=== PATIENT | female | born 1935 ===

== ENCOUNTER 2017-04-27 08:05 | Emergency (ER) | payer OTHER ==
[2017-04-27 08:06] VITALS: BMI 25.0
--- NOTE | 2017-04-27 08:55 | RAD ---
HISTORY: CHEST PAIN COMPARISON: No prior. TECHNIQUE: Chest PA and lateral FINDINGS: LUNGS: No active pulmonary disease. PLEURA: No significant pleural effusion identified. No pneumothorax apparent. CARDIOVASCULAR: Normal. OSSEOUS STRUCTURES: No significant abnormalities. VISUALIZED UPPER ABDOMEN: Normal. OTHER FINDINGS: None. IMPRESSION: No active disease.
[2017-04-27 09:07] LABS: BASO # 0.1 K/uL (0.0-0.2); BASO % 0.9 % (0.0-2.0); EOS # 0.2 K/uL (0.0-0.7); HEMOGLOBIN 13.3 g/dL (11.0-16.0); LYMPH # 1.5 K/uL (1.0-4.3); LYMPH % 17.1 % (20.0-40.0); MEAN CELL VOLUME 90.6 fL (81.0-99.0); MEAN CORPUSCULAR HEMOGLOBIN 30.6 pg (27.0-31.0); MEAN CORPUSCULAR HGB CONC 33.8 g/dL (33.0-37.0); MEAN PLATELET VOLUME 8.1 fL (7.2-11.7); MONO # 0.7 K/uL (0.0-0.8); MONO % 8.2 % (0.0-10.0); NEUT # 6.1 K/uL (1.8-7.0); NEUT % 71.8 % (50.0-75.0); RBC 4.33 Mil/uL (3.80-5.20); RED CELL DISTRIBUTION WIDTH 14.8 % (11.5-14.5); WHITE BLOOD COUNT 8.5 K/uL (4.8-10.8)
[2017-04-27 09:14] LABS: INR 1.2; PROTHROMBIN TIME 13.2 SECONDS (9.7-12.2)
[2017-04-27 09:19] LABS: ALB/GLOB RATIO 1.1 (1.0-2.1); ALBUMIN 3.8 g/dL (3.5-5.0); ALT/SGPT 25 U/L (9-52); AST/SGOT 20 U/L (14-36); BLOOD UREA NITROGEN 12 mg/dL (7-17); CALCIUM 9.3 mg/dl (8.6-10.4); GFR AFRICAN-AMERICAN > 60; GFR NON-AFRICAN AMERICAN > 60
--- NOTE | 2017-04-27 10:37 | C.PDOC ---
History Of Present Illness 82-year-old female complaining of upper back pain radiating to head and neck x4 days. Patient seen by her doctor two days ago, and prescribed a "pain patch" that she uses with minimal relief, resulting in her coming to ED for evaluation. Denies trauma, sick contacts, fever, chills, chest pain, shortness of breath, dizziness, or any other associated symptoms. No other complaints at this time. Time Seen by Provider: 04/27/17 08:13 Chief Complaint (Nursing): Cough, Cold, Congestion History Per: Patient History/Exam Limitations: no limitations Onset/Duration Of Symptoms: Days Past Medical History Reviewed: Historical Data, Nursing Documentation, Vital Signs Vital Signs: Last Vital Signs Temp 98.4 F 04/27/17 08:12 Pulse 87 04/27/17 08:12 Resp 16 04/27/17 08:12 BP 124/76 04/27/17 08:12 Pulse Ox 95 04/27/17 10:51 - Medical History PMH: Arthritis, Asthma, Atrial Fibrillation, Bronchitis, COPD, Depression, Diverticulitis, Fractures (Left wrist), Gastritis, HTN, Hypercholesterolemia, Osteoporosis, Pneumonia Surgical History: Cholecystectomy, Endoscopy, - [facility] Procedures ANESTH INJEC PERIPH NERV (03/14/13) CLOSED ENDOSCOPIC BIOPSY OF LARGE INTESTINE (10/17/14) ESOPHAGOGASTRODUODENOSCOPY [EGD] W/CLOSED BIOPSY (10/17/14) INTRODUCTION OF ANTI-INFLAM INTO RESP TRACT, VIA OPENING (08/27/16) NEBULIZER THERAPY (01/08/14) OP RED-INT FIX RAD/ULNA (03/14/13) Family History: States: Hypertension - Social History Hx Tobacco Use: No Hx Alcohol Use: No Hx Substance Use: No - Immunization History Hx Tetanus Toxoid Vaccination: No Hx Influenza Vaccination: Yes Hx Pneumococcal Vaccination: Yes Review Of Systems Except As Marked, All Systems Reviewed And Found Negative. Constitutional: Negative for: Fever, Weakness, Malaise ENT: Negative for: Ear Pain, Nose Congestion, Throat Pain Cardiovascular: Negative for: Chest Pain Respiratory: Negative for: Shortness of Breath Gastrointestinal: Negative for: Nausea, Vomiting Musculoskeletal: Positive for: Neck Pain, Back Pain Skin: Negative for: Rash Neurological: Positive for: Headache. Negative for: Weakness, Numbness, Incoordination, Dizziness Physical Exam - Physical Exam Appears: Non-toxic, No Acute Distress Skin: Normal Color, Warm, Dry, No Diaphoretic, No Rash Head: Normacephalic Eye(s): bilateral: Normal Inspection, PERRL Nose: Normal Oral Mucosa: Moist Lips: Normal Appearing Neck: Normal ROM, No Step Off Deformity Chest: Symmetrical Cardiovascular: Rhythm Regular, No Murmur Respiratory: Normal Breath Sounds, No Accessory Muscle Use Extremity: Normal ROM, Capillary Refill (<2 seconds), No Deformity, No Swelling Neurological/Psych: Oriented x3, Normal Speech, Other (No focal deficits) ED Course And Treatment - Laboratory Results Result Diagrams: 04/27/17 09:01 04/27/17 09:01 ECG: Interpreted By Me, Viewed By Me ECG Rhythm: Sinus Rhythm ECG Interpretation: No Acute Changes Rate From EC O2 Sat by Pulse Oximetry: 95 (RA) Pulse Ox Interpretation: Normal Progress Note: EKG, Bloodwork, Chest X-Ray ordered and reviewed. Patient treated with PO Flexeril and PO Tylenol. On re-evaluation, Patient is resting comfortably, and is in no acute distress. Patient was instructed to follow up with *physician/clinic* in 1-2 days for further evaluation. Disposition Counseled Patient/Family Regarding: Studies Performed, Diagnosis, Need For Followup, Rx Given - Disposition Referrals: Shabbir Moseley MD [Staff Provider] - Disposition: HOME/ ROUTINE Disposition Time: 10:50 Condition: STABLE Additional Instructions: FOLLOW UP WITH YOUR DOCTOR IN 1-2 DAYS USE MEDICATIONS NEEDED RETURN TO ER IF SYMPTOMS WORSEN Prescriptions: Acetaminophen [Tylenol 325mg tab] 650 mg PO Q6 PRN #30 tab PRN Reason: pain/fever Cyclobenzaprine [Flexeril] 10 mg PO BID PRN #15 tab PRN Reason: Muscle Spasm Instructions: Upper Back Pain Forms: [employer] (French) Print Language: TURKMEN - POA Present On Arrival: None - Clinical Impression Clinical Impression: Upper back pain - Scribe Statement The provider has reviewed the documentation as recorded by the Scribe (Molly Alvarado) All medical record entries made by the Scribe were at my direction and personally dictated by me. I have reviewed the chart and agree that the record accurately reflects my personal performance of the history, physical exam, medical decision making, and the department course for this patient. I have also personally directed, reviewed, and agree with the discharge instructions and disposition.
[2017-04-27 11:39] VITALS: BP 115/67; PULSE 77; RESP 18; TEMP 97.7; O2SAT 96
--- NOTE | 2017-04-28 12:25 | CARD ---
APPROVED REPORT EKG Measurement Heart [id number] TN [id number] <Conclusion> Unusual P axis and short TN, probable junctional rhythm with premature atrial complexes Abnormal ECG
== END 2017-04-27 11:30 | disposition home or self-care (01) ==
LOC: C.ER 08:05
DX: M54.6 Pain in thoracic spine (principal); I48.91 Unspecified atrial fibrillation; I10 Essential (primary) hypertension; E78.00 Pure hypercholesterolemia, unspecified; Z87.01 Personal history of pneumonia (recurrent); Z87.891 Personal history of nicotine dependence

== ENCOUNTER 2018-02-02 12:40 | Observation (INO) | payer OTHER ==
[2018-02-02 12:40] VITALS: BMI 22.4
[2018-02-02] MEDS ORDERED: Albuterol 0.083% Inhal Sol (2.5 mg/3 mL) UD IH STA ×3 (13:41→16:37)
--- NOTE | 2018-02-02 14:24 | RAD ---
Date of service: 02/02/2018 PROCEDURE: CHEST RADIOGRAPH, 1 VIEW HISTORY: SOB COMPARISON: 04/27/2017 FINDINGS: LUNGS: Clear. PLEURA: No pneumothorax or pleural fluid seen. Biapical mild pleural thickening CARDIOVASCULAR: There is presence of aortic atherosclerotic calcification on x-ray. Mild cardiomegaly-similar. Right cardiophrenic fat pad suggested OSSEOUS STRUCTURES: At the thoraco lumbar level on this single frontal view there are 2 oval approximately 1.5 cm hyperdensities which may be related to thoraco lumbar spine treatment-for example kyphoplasty or the like. These are not appreciated such on prior studies. Other etiologies are also certain considerations. A lateral view would assist here Bilateral shoulder arthrosis VISUALIZED UPPER ABDOMEN: Normal. OTHER FINDINGS: None. IMPRESSION: No acute cardiopulmonary pathology noted. Two nearly contiguous oval hyperdensities projecting over the thoraco lumbar vertebral body on this single frontal view appreciated on the prior single frontal view-their etiology and clinical significance, if any are unknown. If needed consider lateral chest x-ray including this inferior portion of the thoraco lumbar spine
--- NOTE | 2018-02-02 14:37 | C.PDOC ---
History Of Present Illness 82 y/o female with history of COPD presents to ED with c/o productive cough, sob, body aches, generalized weakness and wheezing for 3 weeks worse for 3 days. Patient denies chest pain, abdominal pain, nausea, vomiting, diarrhea, leg swelling or any other complaints at this time. Time Seen by Provider: 02/02/18 13:30 Chief Complaint (Nursing): Flu-like Symptoms History Per: Patient History/Exam Limitations: no limitations Onset/Duration Of Symptoms: Days Current Symptoms Are (Timing): Still Present Past Medical History Reviewed: Historical Data, Nursing Documentation, Vital Signs Vital Signs: Last Vital Signs Temp 99 F 02/02/18 12:49 Pulse 81 02/02/18 12:49 Resp 18 02/02/18 12:49 BP 112/61 02/02/18 12:49 Pulse Ox 95 02/02/18 12:49 - Medical History PMH: Arthritis, Asthma, Atrial Fibrillation, Bronchitis, COPD, Depression, Diverticulitis, Fractures (Left wrist), Gastritis, HTN, Hypercholesterolemia, Osteoporosis, Pneumonia Surgical History: Back Surgery (fracture repair ), Cholecystectomy, Endoscopy, - [facility] Procedures (12/23/17) ANESTH INJEC PERIPH NERV (03/14/13) CLOSED ENDOSCOPIC BIOPSY OF LARGE INTESTINE (10/17/14) ESOPHAGOGASTRODUODENOSCOPY [EGD] W/CLOSED BIOPSY (10/17/14) INTRODUCTION OF ANTI-INFLAM INTO RESP TRACT, VIA OPENING (08/27/16) NEBULIZER THERAPY (01/08/14) OP RED-INT FIX RAD/ULNA (03/14/13) Family History: States: Hypertension - Social History Hx Tobacco Use: No Hx Alcohol Use: No Hx Substance Use: No - Immunization History Hx Tetanus Toxoid Vaccination: No Hx Influenza Vaccination: Yes Hx Pneumococcal Vaccination: Yes Review Of Systems Constitutional: Negative for: Fever, Chills Cardiovascular: Negative for: Chest Pain Respiratory: Positive for: Cough, Shortness of Breath, Wheezing Gastrointestinal: Negative for: Nausea, Vomiting, Diarrhea Skin: Negative for: Rash Physical Exam - Physical Exam Appears: Non-toxic, Other (Intermittently coughing) Skin: Warm, Dry, No Rash Head: Atraumatic, Normacephalic Eye(s): bilateral: Normal Inspection Oral Mucosa: Moist Neck: Supple Cardiovascular: Rhythm Regular Respiratory: No Accessory Muscle Use, No Rales, Rhonchi (bilateral), Wheezing (expiratory bilateral) Gastrointestinal/Abdominal: Soft, No Tenderness, No Guarding, No Rebound Extremity: Normal ROM, No Pedal Edema, Capillary Refill (<2 seconds) Neurological/Psych: Oriented x3, Normal Speech (Speaking in full sentences), Normal Cognition ED Course And Treatment O2 Sat by Pulse Oximetry: 95 (RA) Pulse Ox Interpretation: Normal Progress Note: Blood work, CXR ordered. Neb treatment administered. Disposition - Disposition Forms: [employer] (Cambodian) - Scribe Statement The provider has reviewed the documentation as recorded by the Scribheather Keane All medical record entries made by the Deanibheather were at my direction and personally dictated by me. I have reviewed the chart and agree that the record accurately reflects my personal performance of the history, physical exam, medical decision making, and the department course for this patient. I have also personally directed, reviewed, and agree with the discharge instructions and di sposition.
[2018-02-02 15:12] LABS: BASO # 0.2 K/uL (0.0-0.2); BASO % 1.6 % (0.0-2.0); EOS # 0.4 K/uL (0.0-0.7); EOS % 3.9 % (0.0-4.0); LYMPH # 1.9 K/uL (1.0-4.3); LYMPH % 19.2 % (20.0-40.0); MEAN CELL VOLUME 87.7 fL (81.0-99.0); MEAN CORPUSCULAR HEMOGLOBIN 29.7 pg (27.0-31.0); MEAN CORPUSCULAR HGB CONC 33.9 g/dL (33.0-37.0); MEAN PLATELET VOLUME 8.6 fL (7.2-11.7); MONO # 0.7 K/uL (0.0-0.8); MONO % 6.6 % (0.0-10.0); NEUT # 6.8 K/uL (1.8-7.0); NEUT % 68.7 % (50.0-75.0); RBC 4.36 Mil/uL (3.80-5.20); RED CELL DISTRIBUTION WIDTH 13.5 % (11.5-14.5); WHITE BLOOD COUNT 9.9 K/uL (4.8-10.8)
[2018-02-02] MEDS ORDERED: Albuterol-Ipratrop 3 mg / 0.5 (3 ml) UD INH STA (15:15)
[2018-02-02] MEDS ORDERED: Albuterol 0.083% Inhal Sol (2.5 mg/3 mL) UD ONE ×3 (15:17→16:44)
[2018-02-02 15:19] LABS: VENOUS BLOOD GAS PCO2 44 mmHg (40-60); VENOUS BLOOD GAS PO2 44 mm/Hg (30-55)
[2018-02-02 15:20] LABS: BLOOD UREA NITROGEN 11 mg/dL (7-17); CALCIUM 9.1 mg/dl (8.6-10.4); GFR NON-AFRICAN AMERICAN > 60
[2018-02-02 15:26] LABS: ALB/GLOB RATIO 1.1 (1.0-2.1); ALBUMIN 4.1 g/dL (3.5-5.0); ALT/SGPT 23 U/L (9-52); AST/SGOT 60 U/L (14-36)
[2018-02-02 15:29] LABS: B-TYPE NATRIURETIC PEPTIDE 138 pg/mL (0-900); CK-MB 0.63 ng/mL (0.0-3.38)
[2018-02-02] MEDS ORDERED: Albuterol-Ipratrop 3 mg / 0.5 (3 ml) UD ONE (15:40)
[2018-02-02] MEDS ORDERED: Fluticasone Nasal 50 mcg/Spray NAS PRN (20:15)
[2018-02-02] MEDS ORDERED: Albuterol-Ipratrop 3 mg / 0.5 (3 ml) UD IH PRN (20:15)
[2018-02-02] MEDS ORDERED: guaiFENesin 200 mg/10 ml Syrup UD ONE (20:59)
[2018-02-02] MEDS: guaiFENesin DM 200 mg-20 mg/10 ml UD PO PRN (21:03)
[2018-02-03] MEDS ORDERED: Albuterol-Ipratrop 3 mg / 0.5 (3 ml) UD ONE (02:15)
[2018-02-03] MEDS ORDERED: guaiFENesin DM 200 mg-20 mg/10 ml UD ONE (02:37)
[2018-02-03] MEDS: guaiFENesin DM 200 mg-20 mg/10 ml UD PO PRN ×3 (02:38→23:03)
[2018-02-03] MEDS ORDERED: Tiotropium 18 mcg Cap For Inhalation IH SCH (08:00)
--- NOTE | 2018-02-03 08:05 | RAD ---
Date of service: 02/02/2018 HISTORY: copd COMPARISON: Frontal chest radiograph 02/02/2018, 1:53 p.m.. TECHNIQUE: Chest PA and lateral FINDINGS: LUNGS: No interval active pulmonary disease. PLEURA: No significant pleural effusion identified. Limited biapical pleural fibrosis reiterated. No pneumothorax apparent. CARDIOVASCULAR: Calcific atherosclerotic changes are seen related to the thoracic aorta. Normal cardiac size. No pulmonary vascular congestion. OSSEOUS STRUCTURES: Interval vertebroplasty at the approximate T12 or L1 vertebral body confirmed, initially seen projecting 2 ovoid radiodensities inferior to the plane of the xiphoid process in single frontal chest radiograph 02/02/2018 1:53 p.m.. VISUALIZED UPPER ABDOMEN: Normal. OTHER FINDINGS: None. IMPRESSION: Prior inferior thoracic vertebroplasty changes correspond to 2 radiodensity seen in the frontal view and prior chest radiograph of 2718 1:53 p.m.. No acute interval cardiopulmonary changes identified at this time.
[2018-02-03 09:14] LABS: BASO # 0.1 K/uL (0.0-0.2); BASO % 0.3 % (0.0-2.0); EOS % 0.1 % (0.0-4.0); HEMOGLOBIN 12.4 g/dL (11.0-16.0); LYMPH # 0.9 K/uL (1.0-4.3); LYMPH % 5.5 % (20.0-40.0); MEAN CELL VOLUME 87.8 fL (81.0-99.0); MEAN CORPUSCULAR HEMOGLOBIN 29.3 pg (27.0-31.0); MEAN CORPUSCULAR HGB CONC 33.4 g/dL (33.0-37.0); MEAN PLATELET VOLUME 8.1 fL (7.2-11.7); MONO # 0.1 K/uL (0.0-0.8); MONO % 0.6 % (0.0-10.0); NEUT # 15.6 K/uL (1.8-7.0); NEUT % 93.5 % (50.0-75.0); PLATELET COUNT 295 K/uL (130-400); RBC 4.24 Mil/uL (3.80-5.20); RED CELL DISTRIBUTION WIDTH 13.7 % (11.5-14.5)
[2018-02-03 09:17] LABS: WHITE BLOOD COUNT 16.7 K/uL (4.8-10.8)
[2018-02-03] MEDS: Enoxaparin 40 mg Syringe SC SCH ×3 (09:28→09:41)
[2018-02-03] MEDS: Pantoprazole 40 mg EC Tab PO SCH (09:28)
[2018-02-03 09:30] LABS: BLOOD UREA NITROGEN 21 mg/dL (7-17); CALCIUM 9.6 mg/dl (8.6-10.4); GFR NON-AFRICAN AMERICAN > 60
[2018-02-03 10:04] LABS: LYMPHOCYTE 6 % (20-40); NEUTROPHIL 94 % (50-75); PLATELET ESTIMATE NORMAL (NORMAL); TOTAL CELLS COUNTED 100
--- NOTE | 2018-02-03 16:02 | CP.PCM.HP ---
History of Present Illness - History of Present Illness History of Present Illness: Patient presented SOB, dyspnea, cough, duspnea on exertion and general weakness. Present on Admission - Present on Admission Any Indicators Present on Admission: No Review of Systems - Constitutional Constitutional: Fatigue, Weakness - Cardiovascular Cardiovascular: Dyspnea, Dyspnea on Exertion - Respiratory Respiratory: Cough, Dyspnea, Dyspnea on Exertion, Wheezing - Gastrointestinal Gastrointestinal: As Per HPI - Musculoskeletal Musculoskeletal: As Per HPI - Neurological Neurological: As Per HPI - Psychiatric Psychiatric: Anxiety, Depression, Panic Attacks - Endocrine Endocrine: As Per HPI Past Patient History - Infectious Disease Hx of Infectious Diseases: None - Tetanus Immunizations Tetanus Immunization: Unknown - Past Medical History & Family History Past Medical History?: Yes - Past Social History Smoking Status: Former Smoker - CARDIAC Hx Atrial Fibrillation: Yes Hx Hypercholesterolemia: Yes Hx Hypertension: Yes - PULMONARY Hx Asthma: Yes Hx Bronchitis: Yes Hx Chronic Obstructive Pulmonary Disease (COPD): Yes Hx Pneumonia: Yes - NEUROLOGICAL Hx Neurological Disorder: No - HEENT Hx HEENT Problems: Yes Other/Comment: wears corrective lenses for reading - RENAL Hx Chronic Kidney Disease: No - ENDOCRINE/METABOLIC Hx Endocrine Disorders: No - HEMATOLOGICAL/ONCOLOGICAL Hx Anemia: No Hx Human Immunodeficiency Virus (HIV): No Hx Sickle Cell Disease: No - INTEGUMENTARY Hx Dermatological Problems: No - MUSCULOSKELETAL/RHEUMATOLOGICAL Hx Musculoskeletal Disorders: Yes Hx Arthritis: Yes Hx Falls: No Hx Fractures: Yes (Left wrist) Hx Osteoporosis: Yes - GASTROINTESTINAL Hx Gastrointestinal Disorders: Yes Hx Diverticulitis: Yes Hx Gastritis: Yes - GENITOURINARY/GYNECOLOGICAL Hx Genitourinary Disorders: No Hx Sexually Transmitted Disorders: No - PSYCHIATRIC Hx Depression: Yes Hx Substance Use: No - SURGICAL HISTORY Hx Cholecystectomy: Yes - ANESTHESIA Hx Anesthesia: Yes Hx Anesthesia Reactions: No Hx Malignant Hyperthermia: No Has any member of the family had a problem w/ anesthesia?: No Meds Home Medications: Home Medication List Medication Instructions Recorded Confirmed Type Albuterol/Ipratropium [Duoneb 3 3 ml INH RSTAT neb 02/03/18 Rx mg/0.5 mg (3 ml) UD] Tiotropium [place] Inhaler 1 inhaler INH ONCE inhaler 02/03/18 Rx [Spiriva Inhalation Handihaler Device] Vitamin E [Vitamin E 400 Units Cap] 400 intlu PO DAILY cap 02/03/18 Rx Zolpidem [Ambien] 5 mg PO HS tab 02/03/18 Rx Allergies/Adverse Reactions: Allergies Allergy/AdvReac Type Severity Reaction Status Date / Time adhesive tape Allergy ITCHING Verified 11/21/17 21:33 aspirin Allergy ITCHING Verified 11/21/17 21:33 mushroom Allergy NAUSEA Verified 11/21/17 21:33 Physical Exam - Constitutional Appears: Chronically Ill - Head Exam Head Exam: ATRAUMATIC, NORMAL INSPECTION, NORMOCEPHALIC - Eye Exam Eye Exam: Normal appearance - ENT Exam ENT Exam: Mucous Membranes Moist - Neck Exam Neck exam: Positive for: Full Rom - Respiratory Exam Respiratory Exam: Decreased Breath Sounds - Cardiovascular Exam Cardiovascular Exam: REGULAR RHYTHM, +S1, +S2 - GI/Abdominal Exam GI & Abdominal Exam: Normal Bowel Sounds - Extremities Exam Extremities exam: Positive for: normal inspection - Neurological Exam Neurological exam: Alert, CN II-XII Intact, Oriented x3 - Psychiatric Exam Psychiatric exam: Anxious, Depressed - Skin Skin Exam: Pallor Results - Vital Signs Recent Vital Signs: Last Vital Signs Temp 98.3 F 02/03/18 06:05 Pulse 92 H 02/03/18 10:00 Resp 19 02/03/18 06:05 BP 124/62 02/03/18 06:05 Pulse Ox 96 02/03/18 06:05 - Labs Result Diagrams: 02/03/18 09:10 02/03/18 09:10 Labs: Laboratory Results - last 24 hr 02/02/18 02/02/18 02/03/18 15:00 16:41 09:10 WBC 16.7 H D RBC 4.24 Hgb 12.4 Hct 37.2 MCV 87.8 MCH 29.3 MCHC 33.4 RDW 13.7 Plt Count 295 MPV 8.1 Neut % (Auto) 93.5 H Lymph % (Auto) 5.5 L Mcleod % (Auto) 0.6 Eos % (Auto) 0.1 Baso % (Auto) 0.3 Neut # (Auto) 15.6 H Lymph # (Auto) 0.9 L Mcleod # (Auto) 0.1 Eos # (Auto) 0.0 Baso # (Auto) 0.1 Neutrophils % (Manual) 94 H Lymphocytes % (Manual) 6 L Monocytes % (Manual) TEST NOT PERFORMED Platelet Estimate Normal Sodium Potassium Chloride Carbon Dioxide Anion Gap BUN Creatinine Est GFR ( Amer) Est GFR (Non-Af Amer) Random Glucose Calcium Troponin I < 0.0120 Influenza Typ A,B (EIA) Negative for flu a/b 02/03/18 09:10 WBC RBC Hgb Hct MCV MCH MCHC RDW Plt Count MPV Neut % (Auto) Lymph % (Auto) Mcleod % (Auto) Eos % (Auto) Baso % (Auto) Neut # (Auto) Lymph # (Auto) Mcleod # (Auto) Eos # (Auto) Baso # (Auto) Neutrophils % (Manual) Lymphocytes % (Manual) Monocytes % (Manual) Platelet Estimate Sodium 138 Potassium 4.5 Chloride 104 Carbon Dioxide 26 Anion Gap 13 BUN 21 H Creatinine 0.7 Est GFR ( Amer) > 60 Est GFR (Non-Af Amer) > 60 Random Glucose 198 H Calcium 9.6 Troponin I Influenza Typ A,B (EIA) Assessment & Plan (1) COPD (chronic obstructive pulmonary disease) Status: Chronic (2) COPD exacerbation Status: Acute Priority: High (3) Dyspnea Status: Acute (4) Leukocytosis Status: Acute (5) PAH (pulmonary artery hypertension) Status: Chronic (6) Anxiety attack Status: Chronic (7) HTN (hypertension) Status: Chronic (8) DVT prophylaxis Status: Resolved - Assessment and Plan (Free Text) Plan: As per orders.
[2018-02-03] MEDS: Albuterol-Ipratrop 3 mg / 0.5 (3 ml) UD INH SCH ×2 (16:37→19:23)
--- NOTE | 2018-02-03 23:44 | CARD ---
APPROVED REPORT Date of service: 02/02/2018 EKG Measurement Heart [id number] <Conclusion> Sinus rhythm with premature atrial complexes Otherwise normal ECG
[2018-02-04 09:33] LABS: BASO # 0.2 K/uL (0.0-0.2); BASO % 0.7 % (0.0-2.0); HEMOGLOBIN 12.7 g/dL (11.0-16.0); LYMPH # 1.1 K/uL (1.0-4.3); LYMPH % 4.4 % (20.0-40.0); MEAN CELL VOLUME 87.7 fL (81.0-99.0); MEAN CORPUSCULAR HEMOGLOBIN 29.2 pg (27.0-31.0); MEAN CORPUSCULAR HGB CONC 33.3 g/dL (33.0-37.0); MEAN PLATELET VOLUME 8.4 fL (7.2-11.7); MONO # 0.5 K/uL (0.0-0.8); MONO % 1.9 % (0.0-10.0); NEUT # 24.2 K/uL (1.8-7.0); NRBC % 0.1 % (0.0-2.0); PLATELET COUNT 337 K/uL (130-400); RBC 4.36 Mil/uL (3.80-5.20); RED CELL DISTRIBUTION WIDTH 13.8 % (11.5-14.5)
[2018-02-04] MEDS: Enoxaparin 40 mg Syringe SC SCH (09:44)
[2018-02-04] MEDS: Pantoprazole 40 mg EC Tab PO SCH (09:45)
[2018-02-04 10:17] LABS: BLOOD UREA NITROGEN 21 mg/dL (7-17); CALCIUM 9.3 mg/dl (8.6-10.4); GFR NON-AFRICAN AMERICAN > 60
[2018-02-04 10:34] LABS: LYMPHOCYTE 12 % (20-40); MONOCYTE 1 % (0-10); NEUTROPHIL 87 % (50-75); PLATELET ESTIMATE NORMAL (NORMAL); TOTAL CELLS COUNTED 100
--- NOTE | 2018-02-04 10:49 | RAD ---
Chest x-ray single frontal view HISTORY: COPD. Comparison: 02/02/2018 Findings: Biapical pleural thickening with upper lobe granulomatous changes. Hyperinflation suggestive for COPD and or emphysematous changes. Nodular density at the left lung apex. Right paratracheal prominence may represent prominent vasculature. Diffuse increased interstitial lung markings. Atherosclerotic calcification at the aortic knob. Tortuous ectatic aorta. Mild cardiomegaly. Degenerative changes in the spine and shoulders. Impression: Biapical pleural thickening with upper lobe granulomatous changes. Hyperinflation suggestive for COPD and or emphysematous changes. Nodular density at the left lung apex. Right paratracheal prominence may represent prominent vasculature. Diffuse increased interstitial lung markings. Atherosclerotic calcification at the aortic knob. Tortuous ectatic aorta. Mild cardiomegaly.
[2018-02-04] MEDS ORDERED: Azithromycin 500 MG in Sodium Chloride 0.9% 250 ML IVPB SCH (12:00)
--- NOTE | 2018-02-04 13:25 | CT ---
Date of service: 02/04/2018 PROCEDURE: CT Chest without contrast HISTORY: Apical nodularity the COMPARISON: None available. TECHNIQUE: Contiguous axial images were obtained through the chest without intravenous contrast enhancement. Sagittal and coronal reconstructions were performed. Radiation dose: Total exam DLP = 212.37 mGy-cm. This CT exam was performed using one or more of the following dose reduction techniques: Automated exposure control, adjustment of the mA and/or kV according to patient size, and/or use of iterative reconstruction technique. FINDINGS: LUNGS: Lungs are hyperinflated with some flattening of the diaphragms consistent with underlying changes of COPD. Biapical irregular pleural thickening and minor adjacent pleural and parenchymal scarring. Few tiny blebs seen in the right lung apex.. Stellate appearing scarring changes right upper lobe with minimal central nodularity. Recommend follow-up CT scan at 3 month interval to assess stability and exclude the possibility of developing carcinoma. There is a patchy area of somewhat faint ground-glass opacity right anterior upper lobe. Linear atelectasis and/or scarring seen in the left lung base including the lingular region... MEDIASTINUM: Heart size is within range of normal. No significant pericardial effusion. Ascending thoracic aorta is slightly dilated measuring approximately 4.0 cm. Interval follow-up recommended to assess stability. Descending thoracic aorta measures approximately 2.6 cm.. Mild aortic atherosclerotic calcification. Pulmonary trunk measures approximately 2.65 cm.. . Trachea midline with no large central endoluminal lesions. There is a small hiatal hernia with slight wall thickening of the distal esophagus that could be due to protrusion gastric mucosa. Possibility of esophagitis not excluded. PLEURA: No pleural fluid. No pneumothorax. BONES: No fracture. No destructive lesion. UPPER ABDOMEN: Gallbladder is incompletely distended which in part accounts for thick-walled appearance OTHER FINDINGS: There is a chronic anterior wedge compression fracture of the L1 segment with in situ kyphoplasty cement. Minimal retropulsion posterior superior corner. The remaining vertebral bodies otherwise exhibit relatively normal stature. Multilevel degenerative spondylosis of the thoracic spine. IMPRESSION: Lungs are hyperinflated with some flattening of the diaphragms consistent with underlying changes of COPD. Biapical irregular pleural thickening and minor adjacent pleural and parenchymal scarring. Few tiny blebs seen in the right lung apex.. Stellate appearing scarring changes right upper lobe with minimal central nodularity. Recommend follow-up CT scan at 3 month interval to assess stability and exclude the possibility of developing carcinoma. There is a patchy area of somewhat faint ground-glass opacity right anterior upper lobe. Linear atelectasis and/or scarring seen in the left lung base including the lingular region. Several small discrete nodules/nodular opacities present in both posteromedial lung bases likely postinflammatory as well Mild dilatation of the ascending thoracic aorta. Follow-up CT scan at interval recommended to assess stability.
[2018-02-04 14:40] LABS: SQUAMOUS EPITHIAL 2 /hpf (0-5); URINE BACTERIA RARE (<OCC); URINE BILIRUBIN NEGATIVE (NEGATIVE); URINE BLOOD 1+ (NEGATIVE); URINE CLARITY Clear (Clear); URINE COLOR Yellow (YELLOW); URINE GLUCOSE (UA) NORMAL (Normal); URINE LEUKOCYTE ESTERASE TRACE Leu/uL (Negative); URINE PROTEIN NEGATIVE (NEGATIVE); URINE UROBILINOGEN NORMAL mg/dL (0.2-1.0)
[2018-02-04 16:27] VITALS: BP 140/76; PULSE 88; RESP 20; TEMP 97.7; O2SAT 96
--- NOTE | 2018-02-04 16:49 | CP.PCM.PN ---
Subjective - Date & Time of Evaluation Date of Evaluation: 02/04/18 Time of Evaluation: 16:49 - Subjective Subjective: Patient comfortable not in distress. No SOB no CP no n/v. Will dc home Objective - Vital Signs/Intake and Output Vital Signs (last 24 hours): Temp Pulse Resp BP Pulse Ox 97.7 F 88 20 140/76 96 02/04/18 16:15 02/04/18 16:15 02/04/18 16:15 02/04/18 16:15 02/04/18 16:15 Intake and Output: 02/04/18 02/04/18 11:59 23:59 Intake Total 100 Output Total 500 Balance -400 - Medications Medications: Current Medications Albuterol/Ipratropium (Duoneb 3 Mg/0.5 Mg (3 Ml) Ud) 3 ml INH RQID [facility] Last Admin: 02/03/18 19:23 Dose: 3 ml Albuterol/Ipratropium (Duoneb 3 Mg/0.5 Mg (3 Ml) Ud) 3 ml IH Q6 PRN PRN Reason: Shortness of Breath Last Admin: 02/03/18 02:14 Dose: 3 ml Alprazolam (Xanax) 1 mg PO Q12 PRN PRN Reason: Anxiety Amlodipine Besylate (Norvasc) 5 mg PO DAILY [facility] Last Admin: 02/04/18 09:45 Dose: 5 mg Enoxaparin Sodium (Lovenox) 40 mg SC DAILY [facility] Last Admin: 02/04/18 09:44 Dose: Not Given Fluticasone Propionate (Flonase) 1 spr ARVIN Q12 PRN PRN Reason: Nasal congestion Folic Acid (Folic Acid) 1 mg PO DAILY [facility] Last Admin: 02/04/18 09:43 Dose: 1 mg Guaifenesin/Dextromethorphan (Robitussin Dm) 10 ml PO RQ6 PRN PRN Reason: Cough Last Admin: 02/03/18 23:03 Dose: 10 ml Ceftriaxone Sodium 1 gm/ (Sodium Chloride) 100 mls @ 100 mls/hr IVPB DAILY [facility]; Protocol Last Admin: 02/04/18 13:18 Dose: 100 mls/hr Azithromycin 500 mg/ Sodium (Chloride) 250 mls @ 167 mls/hr IVPB Q24H [facility]; Protocol Last Admin: 11/29/18 13:18 Dose: 167 mls/hr Methylprednisolone (Solu-Medrol) 60 mg IV Q12 [facility] Last Admin: 02/04/18 09:45 Dose: 60 mg Montelukast Sodium (Singulair) 10 mg PO DAILY [facility] Last Admin: 02/04/18 09:45 Dose: 10 mg Pantoprazole Sodium (Protonix Ec Tab) 40 mg PO DAILY [facility] Last Admin: 02/04/18 09:45 Dose: 40 mg Pyridoxine HCl (Vitamin B6 50 Mg Tab) 50 mg PO DAILY [facility] Last Admin: 02/04/18 09:46 Dose: 50 mg Rosuvastatin Calcium (Crestor) 5 mg PO HS [facility] Last Admin: 02/03/18 21:16 Dose: 5 mg Tiotropium [place] (Spiriva) 18 mcg IH RQD [facility] Vitamin A (Vitamin A & D Oint Ud Foilpak) 0.5 ea TOP Q4 [facility] Vitamin E (Vitamin E 400 Units Cap) 400 intlu PO DAILY [facility] Last Admin: 02/04/18 09:46 Dose: 400 intlu Zolpidem Tartrate (Ambien) 5 mg PO HS [facility] Last Admin: 02/03/18 21:16 Dose: 5 mg - Labs Labs: 02/04/18 09:27 02/04/18 09:27 - Constitutional Appears: Chronically Ill - Head Exam Head Exam: ATRAUMATIC, NORMAL INSPECTION, NORMOCEPHALIC - Eye Exam Eye Exam: Normal appearance - ENT Exam ENT Exam: Mucous Membranes Moist - Respiratory Exam Respiratory Exam: Clear to Ausculation Bilateral - Cardiovascular Exam Cardiovascular Exam: REGULAR RHYTHM, +S1, +S2 - GI/Abdominal Exam GI & Abdominal Exam: Normal Bowel Sounds - Extremities Exam Extremities Exam: Normal Inspection - Neurological Exam Neurological Exam: Alert, Awake, Normal Gait, Oriented x3 - Psychiatric Exam Psychiatric exam: Anxious - Skin Skin Exam: Normal Color Assessment and Plan (1) COPD (chronic obstructive pulmonary disease) Status: Chronic (2) COPD exacerbation Status: Acute (3) Dyspnea Status: Acute (4) Leukocytosis Status: Acute (5) PAH (pulmonary artery hypertension) Status: Chronic (6) Anxiety attack Status: Chronic (7) HTN (hypertension) Status: Chronic (8) DVT prophylaxis Status: Resolved - Assessment and Plan (Free Text) Plan: Dc home f/u in my office in 5 days F/U ct scan in 3 months
[2018-02-04] MEDS ORDERED: Vitamins A & D Oint UD Foilpak TOP SCH (20:00)
== END 2018-02-04 17:31 | disposition home or self-care (01) ==
LOC: C.ER 12:40 → C.9E 17:22 → C.9I 02-03 05:24 → C.5S 02-04 16:13
PROVIDERS: ADMIT Internal Medicine; ATTEND Internal Medicine
DX: J44.1 Chronic obstructive pulmonary disease with (acute) exacerbation (principal); I27.21 Secondary pulmonary arterial hypertension; F41.1 Generalized anxiety disorder; I10 Essential (primary) hypertension; D72.829 Elevated white blood cell count, unspecified; Z87.891 Personal history of nicotine dependence; Z87.01 Personal history of pneumonia (recurrent); Z90.49 Acquired absence of other specified parts of digestive tract
CPT/HCPCS: 71045; 71046; 71250; 80048; 80053; 81001; 82550; 82553; 82803; 83880; 84484; 85025; 87040; 87081; 87804; 93005; 94640; 96374; 99285; G0378; J0456; J0696; J2930

== ENCOUNTER 2018-05-19 11:28 | Inpatient (IN) | payer OTHER ==
[2018-05-19 11:29] VITALS: BMI 22.4
[2018-05-19] MEDS ORDERED: Sodium Chloride 0.9% 1,000 ML ONE (11:57)
[2018-05-19] MEDS: Albuterol-Ipratrop 3 mg / 0.5 (3 ml) UD IH SCH ×2 (12:00→12:15)
[2018-05-19] MEDS ORDERED: Albuterol-Ipratrop 3 mg / 0.5 (3 ml) UD ONE (12:06)
[2018-05-19] MEDS: Sodium Chloride 0.9% 1,000 ML IV SCH ×2 (12:06→21:25)
--- NOTE | 2018-05-19 12:18 | C.PDOC ---
History Of Present Illness 83 year old female brought in by ambulance to ED with complaint of cough, fever, and body aches for the past 2-3 days. Patient also complains of a sore throat. She doesn't remember if she had her flu vaccine or not. Patient denies chills, diaphoresis,nasal congestion, runny nose, nausea, vomiting, and diarrhea. Time Seen by Provider: 05/19/18 11:37 Chief Complaint (Nursing): Flu-like Symptoms History Per: Patient, EMS History/Exam Limitations: no limitations Onset/Duration Of Symptoms: Days (2-3) Current Symptoms Are (Timing): Still Present Location Of Pain: Throat Associated Symptoms: Fever, Sore Throat, Cough, Myalgias. denies: Chills, Sputum, Sinus Drainage, Nasal Congestion, Nausea, Vomiting, Diarrhea Past Medical History Reviewed: Historical Data, Nursing Documentation, Vital Signs Vital Signs: Last Vital Signs Temp 99.2 F 05/19/18 11:37 Pulse 95 H 05/19/18 11:37 Resp 20 05/19/18 11:37 BP 141/71 05/19/18 11:37 Pulse Ox 95 05/19/18 11:37 - Medical History PMH: Arthritis, Asthma, Atrial Fibrillation, Bronchitis, COPD, Depression, Diverticulitis, Fractures (Left wrist), Gastritis, HTN, Hypercholesterolemia, Osteoporosis, Pneumonia Denies: Alzheimer's Disease, Anemia, Bipolar Disorder, Crohn's Disease, Dementia, Emphysema, Gall Bladder Disease, HIV, Post Traumatic Stress Disorder, Pulmonary Embolism, Chronic Kidney Disease, Rheumatoid Arthritis, Schizophrenia, Seizures, Sickle Cell Disease, Sexually Transmitted Disease, Sleep Apnea, TIA Surgical History: Back Surgery (fracture repair ), Cholecystectomy, Endoscopy, Denies: Appendectomy, CABG, Carotid Endarterectomy, Coronary Stent, Pacemaker, Tonsillectomy - [facility] Procedures (12/23/17) ANESTH INJEC PERIPH NERV (03/14/13) CLOSED ENDOSCOPIC BIOPSY OF LARGE INTESTINE (10/17/14) ESOPHAGOGASTRODUODENOSCOPY [EGD] W/CLOSED BIOPSY (10/17/14) INTRODUCTION OF ANTI-INFLAM INTO RESP TRACT, VIA OPENING (08/27/16) NEBULIZER THERAPY (01/08/14) OP RED-INT FIX RAD/ULNA (03/14/13) Family History: States: Unknown Family Hx, Hypertension - Social History Hx Tobacco Use: No Hx Alcohol Use: No Hx Substance Use: No - Immunization History Hx Tetanus Toxoid Vaccination: No Hx Influenza Vaccination: Yes Hx Pneumococcal Vaccination: Yes Review Of Systems Constitutional: Positive for: Fever, Malaise. Negative for: Chills, Sweats, Weakness ENT: Positive for: Throat Pain. Negative for: Nose Discharge, Nose Congestion Cardiovascular: Negative for: Chest Pain Respiratory: Positive for: Cough. Negative for: Sputum Gastrointestinal: Negative for: Nausea, Vomiting, Diarrhea Neurological: Negative for: Weakness, Numbness, Dizziness Physical Exam - Physical Exam Appears: Well, Non-toxic, No Acute Distress, Other (coughing) Skin: Normal Color, Warm, Dry Head: Atraumatic, Normacephalic Neck: Normal ROM, Supple Chest: Symmetrical, No Deformity Cardiovascular: Rhythm Regular, No Murmur Respiratory: No Accessory Muscle Use, No Rales, Rhonchi (bilaterally), No Wheezing Gastrointestinal/Abdominal: Soft, No Tenderness Extremity: Capillary Refill (<2 seconds), No Swelling (bilateral lower extremities) Extremity: Bilateral: Atraumatic, Normal Color And Temperature, Normal ROM Neurological/Psych: Oriented x3, Normal Speech, Normal Cognition ED Course And Treatment - Laboratory Results Result Diagrams: 05/19/18 12:23 05/19/18 12:23 Lab Interpretation: Normal ECG: Interpreted By Me ECG Rhythm: Sinus Rhythm ECG Interpretation: Normal Rate From EC O2 Sat by Pulse Oximetry: 95 (in RA) Pulse Ox Interpretation: Normal - Other Rad CXR X-Ray: Interpreted by Me, Viewed By Me Interpretation: Accession No. : [id number]. Patient Name / ID : FABRICIO COLÓN / [id number]. Exam Date : 05/19/2018 12:27:12 ( Approved ). Study Comment : Sex / Age : F / [id number]. Creator : layton doan. Dictator : Etta Alves MD. Powdered Metal Supervisor : Air Bag Builder : Etta Alves MD. Approver2 : Report Date : 05/19/2018 12:30:26. My Comment : . HISTORY: SOB. COMPARISON: Chest x-ray performed 02/04/18. TECHNIQUE: Chest, one view. FINDINGS: LUNGS: Biapical pleural thickening. Hyperinflation may be seen in the setting of COPD. No focal consolidation. 4 mm nodular opacity projects over the left 7th posterior rib, possibly granuloma, artifact, bone island. Please note that chest x-ray has limited sensitivity for the detection of pulmonary masses. PLEURA: No significant pleural effusion identified. No definite pneumothorax . CARDIOVASCULAR: Cardiomegaly. Atherosclerotic calcifications of the aorta. OSSEOUS STRUCTURES: Osseous demineralization. Degenerative changes. VISUALIZED UPPER ABDOMEN: Unremarkable. OTHER FINDINGS: None. IMPRESSION: Cardiomegaly. Biapical pleural thickening. Hyperinflation may be seen in setting of COPD. 4 mm nodular opacity projects over the left 7th posterior rib, possibly granuloma, artifact, bone island. Progress Note: Treated with rocephin, zithromax, decadrom and tylenol. On re- evaluation lungs few ronchi Reassessment Condition: Improved - Physician Consult Information Physician Contacted: Sp Vines Outcome Of Conversation: admit Medical Decision Making Medical Decision Making: Impression: 83 year old female with cough, fever, and body aches for the past 2- 3 days Plan: CXR Labs with flu a/b and rapid strep Duoneb IH IV fluids Disposition Discussed With Dr.: Sp Vines Doctor Will See Patient In The: Hospital - Disposition Disposition: HOSPITALIZED Disposition Time: 14:30 Condition: IMPROVED - POA Present On Arrival: None - Clinical Impression Clinical Impression: COPD (chronic obstructive pulmonary disease), URI (upper respiratory infection), Influenza-like illness - PA / STAMP MOUNTER / Resident Statement MD/DO has reviewed & agrees with the documentation as recorded. (Deyanira Narayan) - Scribe Statement The provider has reviewed the documentation as recorded by the Scribe (Deyanira Narayan) All medical record entries made by the Scribe were at my direction and personally dictated by me. I have reviewed the chart and agree that the record accurately reflects my personal performance of the history, physical exam, medical decision making, and the department course for this patient. I have also personally directed, reviewed, and agree with the discharge instructions and disposition. Decision To Admit - Pt Status Changed To: Hospital Disposition Of: Inpatient - Admit Certification Admit to Inpatient:: After my assessment, the patient will require hospitalization for at least two midnights. This is because of the severity of symptoms shown, intensity of services needed, and/or the medical risk in this patient being treated as an outpatient. - InPatient: Physician Admission Certification: I certify that this patient requires 2 or more midnights of care for the following reason:: COPD exacerbation - . Bed Request Type: Regular Admitting Physician: Sp Vines Patient Diagnosis: COPD (chronic obstructive pulmonary disease), URI (upper respiratory infection), Influenza-like illness
[2018-05-19 12:40] LABS: BASO % 0.4 % (0.0-2.0); HEMOGLOBIN 13.5 g/dL (11.0-16.0); LYMPH # 0.8 K/uL (1.0-4.3); LYMPH % 12.3 % (20.0-40.0); MEAN CELL VOLUME 88.5 fL (81.0-99.0); MEAN CORPUSCULAR HEMOGLOBIN 29.3 pg (27.0-31.0); MEAN CORPUSCULAR HGB CONC 33.1 g/dL (33.0-37.0); MEAN PLATELET VOLUME 9.3 fL (7.2-11.7); MONO # 1.1 K/uL (0.0-0.8); NEUT # 4.4 K/uL (1.8-7.0); NEUT % 70.3 % (50.0-75.0); RBC 4.6 Mil/uL (3.80-5.20); RED CELL DISTRIBUTION WIDTH 14.2 % (11.5-14.5); WHITE BLOOD COUNT 6.2 K/uL (4.8-10.8)
[2018-05-19 12:44] LABS: ALB/GLOB RATIO 1.4 (1.0-2.1); ALBUMIN 4.3 g/dL (3.5-5.0); ALT/SGPT 25 U/L (9-52); AST/SGOT 44 U/L (14-36); BLOOD UREA NITROGEN 18 mg/dL (7-17); CALCIUM 9.1 mg/dl (8.6-10.4); GFR NON-AFRICAN AMERICAN > 60
--- NOTE | 2018-05-19 13:21 | RAD ---
HISTORY: SOB COMPARISON: Chest x-ray performed 02/04/18 TECHNIQUE: Chest, one view. FINDINGS: LUNGS: Biapical pleural thickening. Hyperinflation may be seen in the setting of COPD. No focal consolidation. 4 mm nodular opacity projects over the left 7th posterior rib, possibly granuloma, artifact, bone island. Please note that chest x-ray has limited sensitivity for the detection of pulmonary masses. PLEURA: No significant pleural effusion identified. No definite pneumothorax . CARDIOVASCULAR: Cardiomegaly. Atherosclerotic calcifications of the aorta. OSSEOUS STRUCTURES: Osseous demineralization. Degenerative changes. VISUALIZED UPPER ABDOMEN: Unremarkable. OTHER FINDINGS: None. IMPRESSION: Cardiomegaly. Biapical pleural thickening. Hyperinflation may be seen in setting of COPD. 4 mm nodular opacity projects over the left 7th posterior rib, possibly granuloma, artifact, bone island.
[2018-05-19] MEDS ORDERED: Azithromycin 500mg/250ML NS 500 MG/250 ML BAG IVPB ONE (13:56)
[2018-05-19] MEDS ORDERED: Azithromycin 500mg/250ML NS 500 MG/250 ML BAG IVPB STA (14:00)
[2018-05-19] MEDS ORDERED: Dexamethasone 4 mg/1 ml IVP STA (14:03)
[2018-05-19] MEDS ORDERED: cefTRIAXone IV 1 gm in Dextros 50 ML IV ONE (14:08)
[2018-05-19] MEDS ORDERED: Fluticasone Nasal 50 mcg/Spray NAS PRN (19:36)
[2018-05-19] MEDS ORDERED: MethylPREDNISolone 40 mg Vial IVP STA (19:36)
--- NOTE | 2018-05-19 19:39 | CP.PCM.HP ---
Past Patient History - Infectious Disease Hx of Infectious Diseases: None - Tetanus Immunizations Tetanus Immunization: Unknown - Past Medical History & Family History Past Medical History?: Yes - Past Social History Smoking Status: Former Smoker - CARDIAC Hx Cardiac Disorders: Yes Hx Atrial Fibrillation: Yes Hx Hypercholesterolemia: Yes Hx Hypertension: Yes Hx Pacemaker: No - PULMONARY Hx Respiratory Disorders: Yes Hx Asthma: Yes Hx Bronchitis: Yes Hx Chronic Obstructive Pulmonary Disease (COPD): Yes Hx Emphysema: No Hx Pneumonia: Yes Hx Pulmonary Embolism: No Hx Sleep Apnea: No - NEUROLOGICAL Hx Neurological Disorder: No Hx Alzheimer's Disease: No Hx Dementia: No Hx Seizures: No Hx Transient Ischemic Attacks (TIA): No - HEENT Hx HEENT Problems: Yes Other/Comment: wears corrective lenses for reading - RENAL Hx Chronic Kidney Disease: No - ENDOCRINE/METABOLIC Hx Endocrine Disorders: No - HEMATOLOGICAL/ONCOLOGICAL Hx Blood Disorders: No Hx Anemia: No Hx Human Immunodeficiency Virus (HIV): No Hx Sickle Cell Disease: No - INTEGUMENTARY Hx Dermatological Problems: No - MUSCULOSKELETAL/RHEUMATOLOGICAL Hx Falls: Yes - GASTROINTESTINAL Hx Gastrointestinal Disorders: Yes Hx Crohn's Disease: No Hx Diverticulitis: Yes Hx Gall Bladder Disease: No Hx Gastritis: Yes - GENITOURINARY/GYNECOLOGICAL Hx Genitourinary Disorders: No Hx Sexually Transmitted Disorders: No - PSYCHIATRIC Hx Psychophysiologic Disorder: Yes Hx Bipolar Disorder: No Hx Depression: Yes Hx Post Traumatic Stress Disorder: No Hx Schizophrenia: No Hx Substance Use: No - SURGICAL HISTORY Hx Surgeries: Yes Hx Appendectomy: No Hx Carotid Endarterectomy: No Hx Cholecystectomy: Yes Hx Coronary Artery Bypass Graft: No Hx Coronary Stent: No Hx Tonsillectomy: No - ANESTHESIA Hx Anesthesia: Yes Hx Anesthesia Reactions: No Hx Malignant Hyperthermia: No Has any member of the family had a problem w/ anesthesia?: No Meds Allergies/Adverse Reactions: Allergies Allergy/AdvReac Type Severity Reaction Status Date / Time adhesive tape Allergy ITCHING Verified 05/19/18 11:37 aspirin Allergy ITCHING Verified 05/19/18 11:37 mushroom Allergy NAUSEA Verified 05/19/18 11:37 Physical Exam - Constitutional Appears: Well - Head Exam Head Exam: ATRAUMATIC, NORMAL INSPECTION, NORMOCEPHALIC - Eye Exam Eye Exam: EOMI, Normal appearance, PERRL Pupil Exam: NORMAL ACCOMODATION, PERRL - ENT Exam ENT Exam: Mucous Membranes Moist, Normal Exam - Neck Exam Neck exam: Positive for: Normal Inspection - Respiratory Exam Respiratory Exam: Decreased Breath Sounds - Cardiovascular Exam Cardiovascular Exam: REGULAR RHYTHM, +S1, +S2 - GI/Abdominal Exam GI & Abdominal Exam: Diminished Bowel Sounds, Soft - Rectal Exam Rectal Exam: Deferred Results - Vital Signs Recent Vital Signs: Last Vital Signs Temp 98.2 F 05/19/18 16:48 Pulse 86 05/19/18 16:48 Resp 20 05/19/18 16:48 BP 101/52 L 05/19/18 16:48 Pulse Ox 96 05/19/18 16:48 - Labs Result Diagrams: 05/19/18 12:23 05/19/18 12:23 Labs: Laboratory Results - last 24 hr 05/19/18 05/19/18 05/19/18 12:23 12:23 12:23 WBC 6.2 D RBC 4.60 Hgb 13.5 Hct 40.7 MCV 88.5 MCH 29.3 MCHC 33.1 RDW 14.2 Plt Count 213 D MPV 9.3 Neut % (Auto) 70.3 Lymph % (Auto) 12.3 L Collier % (Auto) 17.0 H Eos % (Auto) 0.0 Baso % (Auto) 0.4 Neut # (Auto) 4.4 Lymph # (Auto) 0.8 L Collier # (Auto) 1.1 H Eos # (Auto) 0.0 Baso # (Auto) 0.0 Sodium 133 Potassium 4.0 Chloride 99 Carbon Dioxide 25 Anion Gap 13 BUN 18 H Creatinine 0.6 L Est GFR ( Amer) > 60 Est GFR (Non-Af Amer) > 60 Random Glucose 106 H D Calcium 9.1 Total Bilirubin 0.6 AST 44 H D ALT 25 Alkaline Phosphatase 54 Total Protein 7.5 Albumin 4.3 Globulin 3.2 Albumin/Globulin Ratio 1.4 Influenza Typ A,B (EIA) Negative for flu a/b Grp A Beta Strep Ag 05/19/18 12:23 WBC RBC Hgb Hct MCV MCH MCHC RDW Plt Count MPV Neut % (Auto) Lymph % (Auto) Collier % (Auto) Eos % (Auto) Baso % (Auto) Neut # (Auto) Lymph # (Auto) Collier # (Auto) Eos # (Auto) Baso # (Auto) Sodium Potassium Chloride Carbon Dioxide Anion Gap BUN Creatinine Est GFR ( Amer) Est GFR (Non-Af Amer) Random Glucose Calcium Total Bilirubin AST ALT Alkaline Phosphatase Total Protein Albumin Globulin Albumin/Globulin Ratio Influenza Typ A,B (EIA) Grp A Beta Strep Ag Negative
[2018-05-19] MEDS: guaiFENesin DM 200 mg-20 mg/10 ml UD PO PRN (20:10)
[2018-05-19] MEDS: MethylPREDNISolone 40 mg Vial IVP SCH (21:25)
[2018-05-19] MEDS: Albuterol-Ipratrop 3 mg / 0.5 (3 ml) UD INH SCH (21:46)
[2018-05-19] MEDS ORDERED: Albuterol-Ipratrop 3 mg / 0.5 (3 ml) UD IH PRN (22:10)
[2018-05-20] MEDS: Albuterol-Ipratrop 3 mg / 0.5 (3 ml) UD INH SCH ×4 (01:12→20:33)
[2018-05-20] MEDS: guaiFENesin DM 200 mg-20 mg/10 ml UD PO PRN (06:32)
[2018-05-20] MEDS: MethylPREDNISolone 40 mg Vial IVP SCH ×3 (08:32→21:38)
[2018-05-20] MEDS: Sodium Chloride 0.9% 1,000 ML IV SCH (09:10)
[2018-05-20] MEDS: Enoxaparin 40 mg Syringe SC SCH (09:10)
[2018-05-20] MEDS ORDERED: Tiotropium 18 mcg Cap For Inhalation IH SCH (10:00)
--- NOTE | 2018-05-20 10:35 | CARD ---
APPROVED REPORT Date of service: 05/19/2018 EKG Measurement Heart [id number] MD [id number] <Conclusion> Sinus rhythm with premature atrial complexes with aberrant conduction Nonspecific ST abnormality Abnormal ECG
--- NOTE | 2018-05-20 13:18 | CP.PCM.CON ---
History of Present Illness - History of Present Illness History of Present Illness: 83 year old female brought in by ambulance to ED with complaint of cough, fever, and body aches for the past 2-3 days. Patient also complains of a sore throat. She doesn't remember if she had her flu vaccine or not. Patient denies chills, diaphoresis,nasal congestion, runny nose, nausea, vomiting, and diarrhea. HTN chronic stable, chronic lipids on statin therapy, COPD/Asthma: chronic labile Denies angina/chest pressure Denies hx of prior CVA or NV Non smoker Review of Systems - Review of Systems All systems: reviewed and no additional remarkable complaints except Past Patient History - Infectious Disease Hx of Infectious Diseases: None - Tetanus Immunizations Tetanus Immunization: Unknown - Past Medical History & Family History Past Medical History?: Yes - Past Social History Smoking Status: Former Smoker - CARDIAC Hx Cardiac Disorders: Yes Hx Atrial Fibrillation: Yes Hx Hypercholesterolemia: Yes Hx Hypertension: Yes Hx Pacemaker: No - PULMONARY Hx Respiratory Disorders: Yes Hx Asthma: Yes Hx Bronchitis: Yes Hx Chronic Obstructive Pulmonary Disease (COPD): Yes Hx Emphysema: No Hx Pneumonia: Yes Hx Pulmonary Embolism: No Hx Sleep Apnea: No - NEUROLOGICAL Hx Neurological Disorder: No Hx Alzheimer's Disease: No Hx Dementia: No Hx Seizures: No Hx Transient Ischemic Attacks (TIA): No - HEENT Hx HEENT Problems: Yes Other/Comment: wears corrective lenses for reading - RENAL Hx Chronic Kidney Disease: No - ENDOCRINE/METABOLIC Hx Endocrine Disorders: No - HEMATOLOGICAL/ONCOLOGICAL Hx Blood Disorders: No Hx Anemia: No Hx Human Immunodeficiency Virus (HIV): No Hx Sickle Cell Disease: No - INTEGUMENTARY Hx Dermatological Problems: No - MUSCULOSKELETAL/RHEUMATOLOGICAL Hx Falls: Yes - GASTROINTESTINAL Hx Gastrointestinal Disorders: Yes Hx Crohn's Disease: No Hx Diverticulitis: Yes Hx Gall Bladder Disease: No Hx Gastritis: Yes - GENITOURINARY/GYNECOLOGICAL Hx Genitourinary Disorders: No Hx Sexually Transmitted Disorders: No - PSYCHIATRIC Hx Psychophysiologic Disorder: Yes Hx Bipolar Disorder: No Hx Depression: Yes Hx Post Traumatic Stress Disorder: No Hx Schizophrenia: No Hx Substance Use: No - SURGICAL HISTORY Hx Surgeries: Yes Hx Appendectomy: No Hx Carotid Endarterectomy: No Hx Cholecystectomy: Yes Hx Coronary Artery Bypass Graft: No Hx Coronary Stent: No Hx Tonsillectomy: No - ANESTHESIA Hx Anesthesia: Yes Hx Anesthesia Reactions: No Hx Malignant Hyperthermia: No Has any member of the family had a problem w/ anesthesia?: No Meds Allergies/Adverse Reactions: Allergies Allergy/AdvReac Type Severity Reaction Status Date / Time adhesive tape Allergy ITCHING Verified 05/19/18 11:37 aspirin Allergy ITCHING Verified 05/19/18 11:37 mushroom Allergy NAUSEA Verified 05/19/18 11:37 - Medications Medications: Current Medications Albuterol/Ipratropium (Duoneb 3 Mg/0.5 Mg (3 Ml) Ud) 3 ml INH RQ6 [facility] Last Admin: 05/20/18 01:12 Dose: 3 ml Alprazolam (Xanax) 1 mg PO Q12H PRN PRN Reason: Anxiety Last Admin: 05/20/18 00:46 Dose: 1 mg Amlodipine Besylate (Norvasc) 5 mg PO DAILY [facility] Last Admin: 05/20/18 09:10 Dose: 5 mg Enoxaparin Sodium (Lovenox) 40 mg SC DAILY [facility] Last Admin: 05/20/18 09:10 Dose: 40 mg Fluticasone Propionate (Flonase) 1 spr ARVIN Q12H PRN PRN Reason: Nasal congestion Folic Acid (Folic Acid) 1 mg PO DAILY [facility] Last Admin: 05/20/18 09:10 Dose: 1 mg Guaifenesin/Dextromethorphan (Robitussin Dm) 10 ml PO Q6H PRN PRN Reason: Cough and congestion Last Admin: 05/20/18 06:32 Dose: 10 ml Sodium Chloride (Sodium Chloride 0.9%) 1,000 mls @ 100 mls/hr IV .Q10H [facility] Last Admin: 05/20/18 09:10 Dose: 100 mls/hr Ceftriaxone Sodium 1 gm/ (Sodium Chloride) 100 mls @ 100 mls/hr IVPB DAILY [facility]; Protocol Last Admin: 05/20/18 09:09 Dose: 100 mls/hr Ibuprofen (Motrin Tab) 600 mg PO Q8H PRN PRN Reason: Pain, moderate (4-7) Methylprednisolone (Solu-Medrol) 40 mg IVP Q8H [facility] Last Admin: 05/20/18 08:32 Dose: 40 mg Montelukast Sodium (Singulair) 10 mg PO HS [facility] Last Admin: 05/19/18 21:25 Dose: 10 mg Pyridoxine HCl (Vitamin B6 50 Mg Tab) 50 mg PO DAILY [facility] Last Admin: 05/20/18 09:11 Dose: 50 mg Rosuvastatin Calcium (Crestor) 5 mg PO [facility] Last Admin: 05/19/18 21:25 Dose: 5 mg Tiotropium [place] (Spiriva) 18 mcg INH RQ24 [facility] Vitamin E (Vitamin E 400 Units Cap) 400 intlu PO DAILY [facility] Last Admin: 05/20/18 10:49 Dose: Not Given Zolpidem Tartrate (Ambien) 5 mg PO [facility] Physical Exam - Constitutional Appears: No Acute Distress - Head Exam Head Exam: ATRAUMATIC, NORMAL INSPECTION, NORMOCEPHALIC - Eye Exam Eye Exam: EOMI, Normal appearance. absent: Scleral icterus - ENT Exam ENT Exam: Mucous Membranes Moist - Neck Exam Neck exam: Positive for: Normal Inspection. Negative for: Tenderness, Thyromegaly - Respiratory Exam Respiratory Exam: Wheezes, NORMAL BREATHING PATTERN. absent: Rales, Rhonchi, Respiratory Distress - Cardiovascular Exam Cardiovascular Exam: REGULAR RHYTHM, +S1, +S2. absent: Systolic Murmur - Extremities Exam Extremities exam: Positive for: normal inspection. Negative for: calf tenderness, pedal edema - Neurological Exam Neurological exam: Alert, Oriented x3 - Psychiatric Exam Psychiatric exam: Normal Affect, Normal Mood - Skin Skin Exam: Normal Color, Warm Results - Vital Signs Recent Vital Signs: Last Vital Signs Temp 97.8 F 05/20/18 07:15 Pulse 98 H 05/20/18 07:15 Resp 18 05/20/18 07:15 BP 115/57 L 05/20/18 07:15 Pulse Ox 95 05/20/18 07:15 - Labs Result Diagrams: 05/19/18 12:23 05/19/18 12:23 Labs: Laboratory Results - last 24 hr 05/20/18 06:34 NT-Pro-B Natriuret Pep 405 Assessment & Plan - Assessment and Plan (Free Text) Assessment: > EKG: NSR, PACs, no acute ischemic changes > CXR: hyperinflation, + nodule, pleural thickening, cardiomegaly > labs: Normal H/H, No sig inc in nt-BPNP, normal creat Impression COPD/bronchitis Doubt CHF: given cardiomegaly: echo ordered Doubt ACS: EKG is without high risk features HTN: stable on norvasc LIPIDS: cont crestor DVT prophylaxis
[2018-05-20] MEDS: Tiotropium 18 mcg Cap For Inhalation INH SCH (13:27)
[2018-05-20 16:19] VITALS: RESP 20
[2018-05-20] MEDS: Theophylline 200mg ER 24 hrs Cap PO SCH (17:21)
--- NOTE | 2018-05-20 17:46 | CP.PCM.PN ---
Subjective - Date & Time of Evaluation Date of Evaluation: 05/20/18 Time of Evaluation: 09:30 - Subjective Subjective: clinically same Objective - Vital Signs/Intake and Output Vital Signs (last 24 hours): Temp Pulse Resp BP Pulse Ox 98.3 F 94 H 20 131/61 94 L 05/20/18 15:00 05/20/18 17:20 05/20/18 15:00 05/20/18 17:22 05/20/18 17:20 Intake and Output: 05/20/18 05/20/18 06:59 18:59 Intake Total 1200 Balance 1200 - Medications Medications: Current Medications Albuterol/Ipratropium (Duoneb 3 Mg/0.5 Mg (3 Ml) Ud) 3 ml INH RQ6 YVETTE Last Admin: 05/20/18 13:25 Dose: 3 ml Alprazolam (Xanax) 1 mg PO Q12H PRN PRN Reason: Anxiety Last Admin: 05/20/18 13:25 Dose: 1 mg Amlodipine Besylate (Norvasc) 5 mg PO DAILY ON LICENSE OF [facility] Last Admin: 05/20/18 09:10 Dose: 5 mg Enoxaparin Sodium (Lovenox) 40 mg SC DAILY ON LICENSE OF [facility] Last Admin: 05/20/18 09:10 Dose: 40 mg Fluticasone Propionate (Flonase) 1 spr ARVIN Q12H PRN PRN Reason: Nasal congestion Folic Acid (Folic Acid) 1 mg PO DAILY ON LICENSE OF [facility] Last Admin: 05/20/18 09:10 Dose: 1 mg Furosemide (Lasix) 20 mg IVP ONCE ONE Stop: 05/20/18 18:01 Last Admin: 05/20/18 17:22 Dose: 20 mg Guaifenesin/Dextromethorphan (Robitussin Dm) 10 ml PO Q6H PRN PRN Reason: Cough and congestion Last Admin: 05/20/18 06:32 Dose: 10 ml Sodium Chloride (Sodium Chloride 0.9%) 1,000 mls @ 100 mls/hr IV .Q10H YVETTE Last Admin: 05/20/18 09:10 Dose: 100 mls/hr Ceftriaxone Sodium 1 gm/ (Sodium Chloride) 100 mls @ 100 mls/hr IVPB DAILY [facility]; Protocol Last Admin: 05/20/18 09:09 Dose: 100 mls/hr Ibuprofen (Motrin Tab) 600 mg PO Q8H PRN PRN Reason: Pain, moderate (4-7) Methylprednisolone (Solu-Medrol) 40 mg IVP Q8H ON LICENSE OF [facility] Last Admin: 05/20/18 13:25 Dose: 40 mg Montelukast Sodium (Singulair) 10 mg PO [facility] Last Admin: 05/19/18 21:25 Dose: 10 mg Pyridoxine HCl (Vitamin B6 50 Mg Tab) 50 mg PO DAILY ON LICENSE OF [facility] Last Admin: 05/20/18 09:11 Dose: 50 mg Rosuvastatin Calcium (Crestor) 5 mg PO [facility] Last Admin: 05/19/18 21:25 Dose: 5 mg Theophylline (Cheng-24) 200 mg PO DAILY ON [facility] OF [facility] Last Admin: 05/20/18 17:21 Dose: 200 mg Tiotropium [place] (Spiriva) 18 mcg INH RQ24 ON LICENSE OF [facility] Last Admin: 05/20/18 13:27 Dose: 18 mcg Vitamin E (Vitamin E 400 Units Cap) 400 intlu PO DAILY ON LICENSE OF [facility] Last Admin: 05/20/18 10:49 Dose: Not Given Zolpidem Tartrate (Ambien) 5 mg PO [facility] - Labs Labs: 05/19/18 12:23 05/19/18 12:23 - Constitutional Appears: Well - Head Exam Head Exam: ATRAUMATIC, NORMAL INSPECTION, NORMOCEPHALIC - Eye Exam Eye Exam: EOMI, Normal appearance, PERRL Pupil Exam: NORMAL ACCOMODATION, PERRL - ENT Exam ENT Exam: Mucous Membranes Moist, Normal Exam - Neck Exam Neck Exam: Full ROM, Normal Inspection. absent: Lymphadenopathy - Respiratory Exam Respiratory Exam: Decreased Breath Sounds - Cardiovascular Exam Cardiovascular Exam: REGULAR RHYTHM, +S1, +S2 - GI/Abdominal Exam GI & Abdominal Exam: Soft, Diminished Bowel Sounds - Rectal Exam Rectal Exam: Deferred
[2018-05-21 00:45] VITALS: O2SAT 95
[2018-05-21] MEDS: guaiFENesin DM 200 mg-20 mg/10 ml UD PO PRN (01:46)
[2018-05-21] MEDS: Albuterol-Ipratrop 3 mg / 0.5 (3 ml) UD INH SCH ×3 (02:04→13:42)
[2018-05-21] MEDS: MethylPREDNISolone 40 mg Vial IVP SCH ×2 (05:18→13:34)
[2018-05-21 08:33] VITALS: BP 126/67; PULSE 71; TEMP 98.1
[2018-05-21] MEDS: Enoxaparin 40 mg Syringe SC SCH (10:21)
[2018-05-21] MEDS: Theophylline 200mg ER 24 hrs Cap PO SCH (10:34)
[2018-05-21] MEDS: Tiotropium 18 mcg Cap For Inhalation INH SCH (13:45)
--- NOTE | 2018-05-21 16:37 | CP.PCM.PN ---
Subjective - Date & Time of Evaluation Date of Evaluation: 05/21/18 Time of Evaluation: 15:00 - Subjective Subjective: patient seen today, states cough an dcongestion improved, denies any sob, fever, chills, wants to go home oob ambulating the hallway , without sob vss reviewed- stable- a febrile and spo2 95% Objective - Vital Signs/Intake and Output Vital Signs (last 24 hours): Temp Pulse Resp BP Pulse Ox 98.1 F 71 20 126/67 95 05/21/18 08:32 05/21/18 08:32 05/21/18 08:32 05/21/18 08:32 05/21/18 08:32 Intake and Output: 05/21/18 05/21/18 06:59 18:59 Intake Total 400 Balance 400 - Medications Medications: Current Medications Albuterol/Ipratropium (Duoneb 3 Mg/0.5 Mg (3 Ml) Ud) 3 ml INH RQ6 YVETTE Last Admin: 05/21/18 13:42 Dose: 3 ml Alprazolam (Xanax) 1 mg PO Q12H PRN PRN Reason: Anxiety Last Admin: 05/20/18 13:25 Dose: 1 mg Amlodipine Besylate (Norvasc) 5 mg PO DAILY [facility] Last Admin: 05/21/18 10:21 Dose: 5 mg Enoxaparin Sodium (Lovenox) 40 mg SC DAILY [facility] Last Admin: 05/21/18 10:21 Dose: 40 mg Fluticasone Propionate (Flonase) 1 spr ARVIN Q12H PRN PRN Reason: Nasal congestion Folic Acid (Folic Acid) 1 mg PO DAILY [facility] Last Admin: 05/21/18 10:21 Dose: 1 mg Guaifenesin/Dextromethorphan (Robitussin Dm) 10 ml PO Q6H PRN PRN Reason: Cough and congestion Last Admin: 05/21/18 01:46 Dose: 10 ml Ceftriaxone Sodium 1 gm/ (Sodium Chloride) 100 mls @ 100 mls/hr IVPB DAILY [facility]; Protocol Last Admin: 05/21/18 10:20 Dose: 100 mls/hr Ibuprofen (Motrin Tab) 600 mg PO Q8H PRN PRN Reason: Pain, moderate (4-7) Methylprednisolone (Solu-Medrol) 40 mg IVP Q8H [facility] Last Admin: 05/21/18 13:34 Dose: 40 mg Montelukast Sodium (Singulair) 10 mg PO HS [facility] Last Admin: 05/20/18 21:38 Dose: 10 mg Pyridoxine HCl (Vitamin B6 50 Mg Tab) 50 mg PO DAILY [facility] Last Admin: 05/21/18 10:21 Dose: 50 mg Rosuvastatin Calcium (Crestor) 5 mg PO HS [facility] Last Admin: 05/20/18 21:38 Dose: 5 mg Theophylline (Cheng-24) 200 mg PO DAILY [facility] Last Admin: 05/21/18 10:34 Dose: 200 mg Tiotropium [place] (Spiriva) 18 mcg INH RQ24 [facility] Last Admin: 05/21/18 13:45 Dose: Not Given Vitamin E (Vitamin E 400 Units Cap) 400 intlu PO DAILY [facility] Last Admin: 05/21/18 10:34 Dose: 400 intlu Zolpidem Tartrate (Ambien) 5 mg PO [facility] Last Admin: 05/20/18 23:32 Dose: 5 mg - Labs Labs: 05/19/18 12:23 05/19/18 12:23 Assessment and Plan - Assessment and Plan (Free Text) Assessment: A/P 83 yr old female with Asthma, Atrial Fibrillation, Bronchitis, COPD, Depression, Gastritis, HTN, Hypercholesterolemia admitted with cough, fever , URI ,and Influenza-like illness patient clinically improved with steroids a febrile since admission seen by Dr. Trevino today cleared fro discharge home today and f/u with PMD in 5 days and continue medrol dose pack and Augmentin for 5 more days RX given upon discharge [email or web address] instructed to returns to ED if symptoms returns or any othe concerning symptoms
== END 2018-05-21 17:56 | disposition home or self-care (01) | DRG 192 ==
LOC: C.ER 11:28 → C.9E 14:15 → C.5S 15:03
PROVIDERS: ADMIT Internal Medicine Nephrology; ATTEND Internal Medicine Nephrology
DX: J44.0 Chronic obstructive pulmonary disease with (acute) lower respiratory infection (principal); J11.1 Influenza due to unidentified influenza virus with other respiratory manifestations; E78.00 Pure hypercholesterolemia, unspecified; I51.7 Cardiomegaly; I48.91 Unspecified atrial fibrillation; F32.9 Major depressive disorder, single episode, unspecified; J44.1 Chronic obstructive pulmonary disease with (acute) exacerbation; M81.0 Age-related osteoporosis without current pathological fracture